=== PATIENT | male | born 1960 | race Caucasian/White ===

== ENCOUNTER 2019-04-20 06:39 | Day surgery (SDC) | payer OTHER ==
[2019-04-19 16:51] VITALS: BMI 29.2
[2019-04-20] MEDS ORDERED: BUPIVACAINE HCL/PF 0.25% (2.5MG/ML) 10 ML VIAL ONE (07:48)
[2019-04-20] MEDS ORDERED: BETAMET ACET/BETAMET NA PH 30 MG/5 ML VIAL ONE (07:48)
[2019-04-20] MEDS ORDERED: LIDOCAINE HCL 1%, 10 MG/ML (20ML VIAL) ONE (07:48)
[2019-04-20] MEDS ORDERED: oxyCODONE HCL 5 MG TABLET PO PRN (09:01)
[2019-04-20] MEDS ORDERED: ONDANSETRON 4 MG/2 ML VIAL IVPUSH PRN (09:01)
[2019-04-20] MEDS ORDERED: PROPOFOL 20 ML ONE (10:04)
[2019-04-20] MEDS ORDERED: MIDAZOLAM HCL 2 MG/2 ML SINGLE DOSE VIAL ONE (10:04)
[2019-04-20] MEDS ORDERED: LIDOCAINE HCL 1%, 10 MG/ML (50 mL VIAL) IJ ONE (10:14)
[2019-04-20] MEDS ORDERED: IOHEXOL 180 MG/1 ML ML IJ ONE (10:14)
[2019-04-20] MEDS ORDERED: BETAMET ACET/BETAMET NA PH 30 MG/5 ML VIAL IJ ONE (10:14)
[2019-04-20 11:41] VITALS: BP 140/84; PULSE 53; TEMP 97.4
--- NOTE | 2019-04-22 20:29 | PROC ---
Procedure Note Procedure: Date: 04/20/2019 Name of the patient: Cedrick Hidalgo Preoperative Diagnosis: Low Back pain and Lumbar radiculopathy Left Postoperative Diagnosis: Same Procedure Performed: Lumbar Epidural steroid injection Transforaminal L4 and L5 on Left In hospital Anesthesia: Local / MAC Procedure: I discussed with the patient in detail about the risks, benefits and alternatives to treatment not only limited to infection, headache, numbness , weakness and injury to nerves, blood vessels and muscles. The patient understood, agreed and signed the written consent. The patient was placed in the prone position with the head, abdomen and legs supported with the pillows. The lumbosacral area was prepped and draped with Betadine times three in a sterile fashion. The Left oblique view under the C-arm at L5- S1 level, with a # 25 G, 1-1/2 needle 3 ml of 2% Lidocaine was infiltrated in the skin and subcutaneous tissue. A #22 gauge 3-1/2 inch spinal needle was used to approach epidural space via transforaminal approach with intermittent fluoroscopy in both AP and oblique views. After negative aspiration of blood and CSF, omnipaque (radio opaque dye) was used to confirm the spread of dye in epidural space.A solution containing 2.5 ml of Celestone and 1.5 ml of Marcaine 0.25% total volume 4 ml was prepared, 2 ml was injected into the left L5-S1 level. While the needle was withdrawn, 1 ml of Lidocaine was infiltrated. Similar procedure was repeated at Left L4-5 level. Bleeding was checked. Betadine was wiped off. A sterile bandage was placed. The patient tolerated the procedure well. There were no immediate complications. The patient was transferred to the recovery room. The patient was observed for some time and discharged with a family member as per [facility] criteria. The patient was told to apply ice at the injection site. If there is any problem, call my office or report to ER. ^ Almas Mcpherson M.D.
== END 2019-04-20 11:50 | disposition home or self-care (01) ==
LOC: JASU-SURG 06:39
PROVIDERS: ATTEND Physical Medicine & Rehabilitation
PROC: 3E0R33Z Introduction of Anti-inflammatory into Spinal Canal, Percutaneous Approach (ICD-10-PCS; 2019-04-20)
PROC: 3E0R3BZ Introduction of Anesthetic Agent into Spinal Canal, Percutaneous Approach (ICD-10-PCS; principal; 2019-04-20 09:30)
DX: M54.16 Radiculopathy, lumbar region (principal); M54.5 Low back pain
CPT/HCPCS: 76000-TC-FY

== ENCOUNTER 2021-05-26 06:52 | Day surgery (SDC) | payer OTHER ==
[2021-05-19 12:18] VITALS: BMI 28.3
[~2021-05-26 06:52] MED LIST: BUPIVICAINE 0.25%/MORPH PF/KETOROLAC - 51ML DISP.SYRINGE IA ONE; GELATIN, ABSORBABLE 100 EACH SPONGE TP ONE; THROMBIN (BOVINE) 5,000 UNIT VIAL TP ONE
[2021-05-26] MEDS ORDERED: THROMBIN (BOVINE) 5,000 UNIT VIAL TP ONE ×2 (07:18→10:55)
[2021-05-26] MEDS ORDERED: ceFAZolin SODIUM 1 GM VIAL ONE ×3 (07:18→17:31)
[2021-05-26] MEDS ORDERED: CEFAZOLIN 2 GM in DEXTROSE 5%-WATER - 50 ML IVPB ONE (08:00)
[2021-05-26] MEDS ORDERED: SODIUM CHLORIDE 0.9% P/F 10 ML VIAL IJ ONE (08:04)
[2021-05-26] MEDS ORDERED: MIDAZOLAM HCL 2 MG/2 ML SINGLE DOSE VIAL ONE ×2 (08:04→08:31)
[2021-05-26] MEDS ORDERED: BUPIVACAINE HCL 50 ML ONE ×2 (08:04→09:00)
[2021-05-26] MEDS ORDERED: BUPIVACAINE LIPOSOME/PF (EXPAREL) 266 MG/20 ML VIAL ONE (08:04)
[2021-05-26] MEDS ORDERED: SUCCINYLCHOLINE CHLORIDE 200 MG/10 ML SYRINGE ONE (08:57)
[2021-05-26] MEDS ORDERED: PROPOFOL 20 ML ONE ×2 (08:57)
[2021-05-26] MEDS ORDERED: CELECOXIB 200 MG CAPSULE PO ONE (09:00)
[2021-05-26] MEDS ORDERED: TRANEXAMIC ACID 1000 MG/10 ML VIAL IVPUSH ONE (09:00)
[2021-05-26] MEDS ORDERED: ONDANSETRON 4 MG/2 ML VIAL ONE ×2 (09:50→12:59)
[2021-05-26] MEDS ORDERED: DEXAMETHASONE SOD PHOSPHATE 4 MG/1 ML VIAL ONE (09:50)
[2021-05-26] MEDS ORDERED: TRANEXAMIC ACID 1000 MG/10 ML VIAL ONE (09:50)
[2021-05-26] MEDS ORDERED: BUPIVICAINE 0.25%/MORPH PF/KETOROLAC - 51ML DISP.SYRINGE IA ONE ×3 (10:00→11:20)
[2021-05-26] MEDS ORDERED: LACTATED RINGERS SOLUTION 1,000 ML IV SCH (10:15)
[2021-05-26] MEDS ORDERED: GELATIN, ABSORBABLE 100 EACH SPONGE TP ONE (10:55)
[2021-05-26] MEDS ORDERED: ONDANSETRON 4 MG/2 ML VIAL IVPUSH PRN (11:50)
[2021-05-26] MEDS ORDERED: oxyCODONE HCL 5 MG TABLET PO PRN ×2 (11:50)
[2021-05-26] MEDS ORDERED: ACETAMINOPHEN 500 MG TABLET (FP) ONE (12:23)
[2021-05-26] MEDS: ACETAMINOPHEN 500 MG TABLET (FP) PO SCH ×3 (12:29→23:43)
[2021-05-26] MEDS: ONDANSETRON 4 MG/2 ML VIAL IVPUSH PRN ×2 (13:00→18:43)
[2021-05-26] MEDS ORDERED: DEXTROSE 5%-WATER - 50 ML IVPB ONE (17:31)
[2021-05-26] MEDS: CEFAZOLIN 2 GM in DEXTROSE 5%-WATER - 50 ML IVPB SCH (17:38)
[2021-05-26] MEDS: SENNOSIDES/DOCUSATE COMBO (SENNA PLUS) TABLET (UD) PO SCH (21:21)
[2021-05-26] MEDS ORDERED: ROSUVASTATIN CA 20 MG TABLET PO SCH (22:00)
[2021-05-27] MEDS ORDERED: ceFAZolin SODIUM 1 GM VIAL ONE (00:10)
[2021-05-27] MEDS ORDERED: DEXTROSE 5%-WATER - 50 ML IVPB ONE (00:10)
[2021-05-27] MEDS: CEFAZOLIN 2 GM in DEXTROSE 5%-WATER - 50 ML IVPB SCH (01:59)
[2021-05-27] MEDS: ACETAMINOPHEN 500 MG TABLET (FP) PO SCH ×2 (06:25→13:15)
[2021-05-27] MEDS ORDERED: ASPIRIN 325 MG TABLET PO SCH (08:00)
[2021-05-27] MEDS ORDERED: MULTIVITAMINS (DAILY MVI) TABLET (FP) PO SCH (10:00)
[2021-05-27] MEDS ORDERED: amLODIPine BESYLATE 5 MG TABLET (FP) PO SCH (10:00)
[2021-05-27] MEDS ORDERED: PANTOPRAZOLE 40 MG TABLET PO SCH (10:00)
[2021-05-27] MEDS: SENNOSIDES/DOCUSATE COMBO (SENNA PLUS) TABLET (UD) PO SCH (10:06)
[2021-05-27 14:06] VITALS: BP 158/81; PULSE 76; TEMP 98.8
== END 2021-05-27 15:03 | disposition home health service (06) ==
LOC: FASUSAT 06:52 → FM/S 13:11 → FASUSAT 05-27 15:03
PROVIDERS: ATTEND Orthopaedic Surgery
PROC: 8E0YXBZ Computer Assisted Procedure of Lower Extremity (ICD-10-PCS; 2021-05-26)
PROC: 8E0Y0CZ Robotic Assisted Procedure of Lower Extremity, Open Approach (ICD-10-PCS; 2021-05-26)
PROC: 0SRC0L9 Replacement of Right Knee Joint with Medial Unicondylar Synthetic Substitute, Cemented, Open Approach (ICD-10-PCS; principal; 2021-05-26 10:03)
DX: M17.11 Unilateral primary osteoarthritis, right knee (principal)
CPT/HCPCS: 20985; 27446; C1776; S2900; 73560-TC-RT-FY; 94760; 97010-GP; 97116-GP; 97162-GP